=== PATIENT | male | born 1995 | race Two or more races ===

== ENCOUNTER 2023-09-15 15:52 | Emergency (ER) | payer OTHER ==
[~2023-09-15] VITALS: Ht 165.1 cm; Wt 42.2 kg
[2023-09-15] MEDS: IOHEXOL 300 MG/ML 100ML BOTTLE IJ ONE (16:54)
[2023-09-15 17:15] LABS: Urine Bacteria FEW /hpf (None Seen); Urine Blood Negative /uL (Negative); Urine Clarity Clear (Clear); Urine Color Yellow (Yellow); Urine Mucus FEW (None Seen); Urine Protein, UAD 1+ (Negative); Urine Sperm PRESENT /hpf (None Seen); Urine Urobilinogen Normal (Negative); Urine WBC 2 /hpf (0 - 3)
[2023-09-15 17:22] LABS: Basophils # (auto) 0 10 ^3/uL (0-0.2); Basophils % (auto) 0.5 % (0.0-2.0); Eosinophils # (auto) 0 10 ^3/uL (0-0.8); Eosinophils % (auto) 0.3 % (0.0-7.0); Hematocrit 46.3 % (41.0-53.0); Hemoglobin 15.6 g/dL (13.5-17.5); Lymphocytes # (auto) 1.6 10 ^3/uL (0.4-5.4); Lymphocytes % (auto) 22.9 % (10.0-50.0); Mean Corpuscular Hemoglobin 32.4 pg (28.0-32.0); Mean Corpuscular Hgb Conc. 33.6 g/dL (32.0-36.0); Mean Corpuscular Volume 96.3 fL (80.0-100.0); Monocytes # (auto) 0.6 10 ^3/uL (0-1.3); Monocytes % (auto) 8.7 % (0.0-12.0); Neutrophils # (auto) 4.7 10 ^3/uL (1.6-8.6); Neutrophils % (auto) 67.6 % (37.0-80.0); Nucleated Red Blood Cells % 0.1 %; Red Blood Cells 4.81 10^6/uL (4.5-5.90); Red Cell Distribution Width 13.7 % (11.8-14.3); White Blood Cell 6.9 10^3/uL (4.4-10.8)
[2023-09-15 17:28] LABS: Alanine Aminotransferase 18 U/L (7-40); Albumin 5.1 g/dL (3.2-4.8); Alkaline Phosphatase 120 U/L (46-116); Anion Gap 9 (5-15); Aspartate Aminotransferase 17 U/L (13-40); BUN/Creatinine Ratio 16.7 (10.0-20.0); Bilirubin, Total 2.2 mg/dL (0.2-1.0); Blood Urea Nitrogen 13 mg/dL (9-23); Calcium 10.1 mg/dL (8.7-10.4); Carbon Dioxide 27 mmol/L (20-30); Chloride 101 mmol/L (98-107); Glucose 94 mg/dL (74-106); Lipase 56 U/L (12-53); Potassium 3.5 mmol/L (3.5-5.1); Sodium 137 mmol/L (136-145)
[2023-09-15] MEDS ORDERED: CEPH500T PO (20:29)
[2023-09-15 20:50] VITALS: BP 145/90; PULSE 86; RESP 16; TEMP 98; O2SAT 99
[2023-09-15] MEDS: KETOROLAC TROMETH 30 MG/ML 1ML VIAL IV ONE (21:25)
== END 2023-09-15 21:49 | disposition home or self-care (01) ==
LOC: ER 15:52
DX: N39.0 Urinary tract infection, site not specified (principal)
CPT/HCPCS: 36415; 74177; 80053; 81001; 83605; 83690; 85025; 96374; 99285; J1885; Q9967

== ENCOUNTER 2024-05-24 02:06 | Emergency (ER) | payer OTHER ==
[~2024-05-24] VITALS: Ht 165.1 cm; Wt 42.7 kg
[~2024-05-24 02:06] MED LIST: CEPH500T PO
[2024-05-24 06:17] VITALS: BP 134/84; PULSE 96; RESP 18; TEMP 98.4; O2SAT 98
== END 2024-05-24 06:29 | disposition home or self-care (01) ==
LOC: ER 02:06
DX: A64 Unspecified sexually transmitted disease (principal); F41.9 Anxiety disorder, unspecified

== ENCOUNTER 2025-04-16 20:29 | Inpatient (IN) | payer OTHER ==
[~2025-04-16] VITALS: Ht 165.1 cm; Wt 45.0 kg
[2025-04-16] MEDS: SODIUM CHLORIDE 0.9% 1,000 ML IV ONE ×2 (21:45)
--- NOTE | 2025-04-16 22:12 | DVH ---
Exam: CT CT AB PEL WO CON-NO ORAL OR IV History: Abdominal pain, chest pain Comparison Study: None Technique: Multidetector spiral CT of the abdomen was performed from lung bases to pubic symphysis. I maging was performed without IV contrast. Axial, coronal and sagittal multiplanar reformats were obta ined from the axial data set by the technologist. Radiation dose : 1. Abdomen/Pelvis: CTDIvol 4.99 mGy, DLP 268.94 mGy*cm. Findings: Evaluation of solid organs is limited due to lack of intravenous contrast use. Lung Bases: No acute or significant lung base finding. Normal heart size. No pleural or pericardial effusion. Liver: The liver is normal in size. No focal lesions. Gallbladder and biliary Tree: Unremarkable Spleen: Unremarkable Pancreas: The pancreas is grossly normal in appearance. Adrenal Glands: Unremarkable Kidneys: Kidneys are grossly normal without calculi or hydronephrosis. Bladder: Grossly unremarkable for degree of distention. Bowel: Appendix is normal. No colitis, diverticulitis, obstruction, or other acute abnormality. Ascites: Absent Lymphadenopathy: No mesenteric, retroperitoneal or periportal lymphadenopathy. Abdominal wall and Mesentery: Unremarkable. Vasculature: The visualized abdominal aorta is normal in size and caliber. Evaluation of abdominal a nd pelvic vessels is limited due to lack of intravenous contrast. Pelvic Organs: Unremarkable Musculoskeletal: No aggressive focal bony lesions, acute fractures or dislocation. IMPRESSION: 1. No acute abdominal or pelvic findings. Radiation optimization: All CT scans at this facility use at least one of these dose optimization tk hniques: automated exposure control mA and/or kV adjustment per patient size (includes targeted exam s where dose is matched to clinical indication) or iterative reconstruction.
--- NOTE | 2025-04-16 22:18 | DVH ---
CHEST RADIOGRAPH Indication: Suspected Sepsis Technique: Single frontal view of the chest was obtained COMPARISON: None FINDINGS: Mild bronchial wall thickening with mild streaky opacity in the right perihilar region. Cardiac silhouette and nia are within normal limits. Bones and soft tissues demonstrate no significa nt abnormality. IMPRESSION: Suspect mild bronchitis with streaky opacity in the right perihilar region making it difficult to exc lude a developing bronchopneumonia.
[2025-04-16 22:30] LABS: Hematocrit 49.5 % (41.0-53.0); Hemoglobin 17.0 g/dL (13.5-17.5); Mean Corpuscular Hemoglobin 31.8 pg (28.0-32.0); Mean Corpuscular Volume 92.4 fL (80.0-100.0); Nucleated Red Blood Cells % 0.2 %
[2025-04-16] MEDS: KETOROLAC TROMETH 30 MG/ML 1ML VIAL IV ONE (22:45)
--- NOTE | 2025-04-16 22:47 | ED.PDOC ---
History of Present Illness HPI Comments 29-year-old male, with a history of anxiety and depression, presents with chief complaint of abdominal pain, nausea, vomiting, diarrhea, chills. Patient reports 1 day history of symptoms. Additional onset of chest pain upon arrival to ED. Pain is worse after vomiting. 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 REVIEW OF SYSTEMS: General: Chills, no fever or fatigue HEENT: No sore throat, no earache, no congestion, no neck pain. Cardiac: Chest pain. No palpitations. Lungs: No shortness of breath, no cough. GI: Abdominal pain, nausea,, diarrhea : No dysuria, frequency, or urgency. No hematuria. Musculoskeletal: No joint pain , no joint swelling, no extremity edema. Skin: No rash, no itching. Neuro: No headache, no dizziness, no weakness PHYSICAL EXAM: General: Awake, alert and oriented. Appears anxious. Skin: Skin in warm, dry and intact. Appropriate color for ethnicity. HEENT: The head is normocephalic and atraumatic. Conjunctivae are clear without exudates or hemorrhage. Sclera is non-icteric. EOM are intact. No signs of nystagmus. Eyelids are normal in appearance without swelling or lesions. Oral mucosa is pink and moist Neck: The neck is supple with normal range of motion. No JVD. Cardiac: Tachycardic rate but regular rhythm. No murmurs, gallops, or rubs are auscultated. Respiratory: No signs of respiratory distress. Lung sounds are clear in all lobes bilaterally without rales, rhonchi, or wheezes. Abdominal: Generalized abdominal tenderness. Abdomen is soft, without distention, guarding or rigidity. Bowel sounds are present and normoactive in all four quadrants. Extremities: Upper and lower extremities are atraumatic in appearance without deformity or edema. Neurological: The patient is awake, alert and oriented to person, place, and time with normal speech. Speech is clear. There is no facial asymmetry. Mild tremor. Psychiatric: Appropriate mood and affect. Good judgement and insight. Chief Complaint: Abdominal Pain Time Seen by MD: 20:52 Primary Care Provider: NONE Reviewed Notes: Nurses Notes, Medications, Allergies Allergies: Coded Allergies: NO KNOWN ALLERGIES (Unverified , 09/15/23) Home Meds Active Scripts Cephalexin Monohydrate (Cephalexin) 500 Mg Tab, 1 TAB PO TID for 7 Days, #21 TAB Prov:JOSE GUTIERREZ DO 09/15/23 Information Source: Patient Mode of Arrival: Ambulatory Past Medical History PAST MEDICAL HISTORY: Denies Surgical History: Denies all surgeries Family History Family History: Unknown Social History Smoker: Non-Smoker Alcohol: Occasionally Drugs: Denies Drug Use Lives In: Home Was a procedure done? Was a procedure done?: No EKG EKG : Pulse Rate (adult): 129 [place]: Normal Cardiac Rhythm: ST Block: None Hypertrophy: None ST: Normal Differential Dx Considerations may include: Differential diagnoses considered include: Abdominal aortic aneurysm, DE, esophageal rupture, intestinal obstruction, mesenteric ischemia, perforated viscus or solid organ rupture, CHF with hepatomegaly, pneumonia, abscess, appendicitis, biliary disease, diverticulitis, gastritis, gastroenteritis, hepatitis, hernia, inflammatory bowel disease, pancreatitis, peptic ulcer disease, urinary tract infection, ureteral colic, constipation, GERD, irritable syndrome, abdominal wall pain, nonspecific abdominal pain, herpes zoster, nephrolithiasis. X-Ray, Labs, Meds, VS Vital Signs Date Time Temp Pulse Resp B/P (MAP) Pulse Ox O2 Delivery O2 Flow Rate FiO2 04/16/25 21:29 129 04/16/25 20:35 98.9 130 20 127/87 98 98.9 Lab Test 04/16/25 23:37 04/16/25 22:10 04/15/25 23:45 Range/Units Troponin I High Sensitivity < 3 L < 3 L </=54 ng/L White Blood Count 9.3 4.4-10.8 10^3/uL Red Blood Count 5.35 4.5-5.90 10^6/uL Hemoglobin 17.0 13.5-17.5 g/dL Hematocrit 49.5 41.0-53.0 % Mean Corpuscular Volume 92.4 80.0-100.0 fL Mean Corpuscular Hemoglobin 31.8 28.0-32.0 pg Mean Corpuscular Hemoglobin Concent 34.4 32.0-36.0 g/dL Red Cell Distribution Width 13.1 11.8-14.3 % Platelet Count 332 140-450 10^3/uL Mean Platelet Volume 7.6 6.9-10.8 fL Neutrophils (%) (Auto) 83.3 H 37.0-80.0 % Lymphocytes (%) (Auto) 10.5 10.0-50.0 % Monocytes (%) (Auto) 5.7 0.0-12.0 % Eosinophils (%) (Auto) 0.0 0.0-7.0 % Basophils (%) (Auto) 0.5 0.0-2.0 % Neutrophils # (Auto) 7.8 1.6-8.6 10 ^3/uL Lymphocytes # (Auto) 1.0 0.4-5.4 10 ^3/uL Monocytes # (Auto) 0.5 0-1.3 10 ^3/uL Eosinophils # (Auto) 0 0-0.8 10 ^3/uL Basophils # (Auto) 0 0-0.2 10 ^3/uL Nucleated Red Blood Cells 0.2 % Sodium Level 138 136-145 mmol/L Potassium Level 3.5 3.5-5.1 mmol/L Chloride Level 96 L 98-107 mmol/L Carbon Dioxide Level 21 20-31 mmol/L Anion Gap 21 H 5-15 Blood Urea Nitrogen 6 L 9-23 mg/dL Creatinine 0.79 0.700-1.30 mg/dL Glomerular Filtration Rate Calc 124 >90 mL/min BUN/Creatinine Ratio 7.6 L 10.0-20.0 Serum Glucose 119 H 74-106 mg/dL Lactic Acid Level 4.8 *H 5.2 *H 0.4-2.0 mmol/L Calcium Level 10.2 8.7-10.4 mg/dL Total Bilirubin 2.8 H 0.2-1.0 mg/dL Aspartate Amino Transferase (AST) 24 13-40 U/L Alanine Aminotransferase (ALT) 16 7-40 U/L Alkaline Phosphatase 134 H 46-116 U/L Total Protein 8.4 H 5.7-8.2 g/dL Albumin 5.4 H 3.2-4.8 g/dL Lipase 32 12-53 U/L Current Medications Medications (Trade) Dose Ordered Sig/Sherron Route Start Time Stop Time Status Last Admin Sodium Chloride 1,000 ml @ 1,000 mls/hr Q1H ONCE IV 04/16/25 21:45 04/16/25 22:44 DC 04/16/25 21:45 Ketorolac Tromethamine (Toradol Injection) 15 mg ONCE ONCE IV 04/16/25 21:45 04/16/25 21:46 DC 04/17/25 00:31 Ondansetron HCl (Zofran) 4 mg ONCE ONCE IV 04/16/25 22:45 04/16/25 22:46 DC 04/17/25 00:31 [place] [id number] Ph: [phone] DIAGNOSTIC IMAGING Diagnostic Imaging Report : [id number] Signed PATIENT: YOON LUGO ACCT: [id number] UNIT: [id number] : 1995 LOC: ER ROOM / BED: / AGE / SEX: 29 / M ADM STATUS: REG ER SERVICE 31 ORDERING PHYSICIAN: LENIN MARIA MD PROCEDURE(s): CXR1 - CHEST XRAY 1 VIEW REASON: Suspected Sepsis ORDER NUMBER(s): [id number], ACCESSION NUMBER(s): [id number] CHEST RADIOGRAPH Indication: Suspected Sepsis Technique: Single frontal view of the chest was obtained COMPARISON: None FINDINGS: Mild bronchial wall thickening with mild streaky opacity in the right perihilar region. Cardiac silhouette and nia are within normal limits. Bones and soft tissues demonstrate no significant abnormality. IMPRESSION: Suspect mild bronchitis with streaky opacity in the right perihilar region making it difficult to exclude a developing bronchopneumonia. ATED BY: EVELINE MONROY MD DICTATED DATE/TIME: 04/16/252214 SIGNED BY: EVELINE MONROY MD SIGNED DATE/TIME: 04/16/252214 CC: [address] [address] Ph: [phone] DIAGNOSTIC IMAGING Diagnostic Imaging Report : [id number] Signed PATIENT: YOON LUGO ACCT: [id number] UNIT: [id number] : 1995 LOC: ER ROOM / BED: / AGE / SEX: 29 / M ADM STATUS: REG ER SERVICE 31 ORDERING PHYSICIAN: LENIN MARIA MD PROCEDURE(s): ABPL - CT AB PEL WO CON-NO ORAL OR IV REASON: Abdominal pain, chest pain ORDER NUMBER(s): [id number], ACCESSION NUMBER(s): [id number] Exam: CT CT AB PEL WO CON-NO ORAL OR IV History: Abdominal pain, chest pain Comparison Study: None Technique: Multidetector spiral CT of the abdomen was performed from lung bases to pubic symphysis. Imaging was performed without IV contrast. Axial, coronal and sagittal multiplanar reformats were obtained from the axial data set by the technologist. Radiation dose : 1. Abdomen/Pelvis: CTDIvol 4.99 mGy, DLP 268.94 mGy*cm. Findings: Evaluation of solid organs is limited due to lack of intravenous contrast use. Lung Bases: No acute or significant lung base finding. Normal heart size. No pleural or pericardial effusion. Liver: The liver is normal in size. No focal lesions. Gallbladder and biliary Tree: Unremarkable Spleen: Unremarkable Pancreas: The pancreas is grossly normal in appearance. Adrenal Glands: Unremarkable Kidneys: Kidneys are grossly normal without calculi or hydronephrosis. Bladder: Grossly unremarkable for degree of distention. Bowel: Appendix is normal. No colitis, diverticulitis, obstruction, or other acute abnormality. Ascites: Absent Lymphadenopathy: No mesenteric, retroperitoneal or periportal lymphadenopathy. Abdominal wall and Mesentery: Unremarkable. Vasculature: The visualized abdominal aorta is normal in size and caliber. Evaluation of abdominal and pelvic vessels is limited due to lack of intravenous contrast. Pelvic Organs: Unremarkable Musculoskeletal: No aggressive focal bony lesions, acute fractures or dislocation. IMPRESSION: 1. No acute abdominal or pelvic findings. Radiation optimization: All CT scans at this facility use at least one of these dose optimization techniques: automated exposure control mA and/or kV adjustment per patient size (includes targeted exams where dose is matched to clinical indication) or iterative reconstruction. ATED BY: EVELINE MONROY MD DICTATED DATE/TIME: 04/16/252209 SIGNED BY: EVELINE MONROY MD SIGNED DATE/TIME: 04/16/252209 CC: Time of 1ST Reevaluation: 21:22 Reevaluation 1ST: Unchanged Patient Education/Counseling: Treatment, Other (Need for admission) Family Education/Counseling: No Family Present SEPSIS Sepsis Screen Date sepsis recognized/suspect: Apr 16, 2025 Time Sepsis recognized/suspect: 2037 Recent Procedure: No On Antibiotic Therapy: No Respiratory Rate >20: No Heart Rate >90: Yes Temp<36 C (96.8 F) or >38.3 C: No SBP <90 or MAP <65 mmHG: No New Acute Mental Status Change: No Is the patient on CPAP, BIPAP,: No Physician Orders Jig Grinder (04/16/25 ) Rectal/Core Temps Only (04/16/25 21:32) Blood Culture (04/16/25 21:32) Chest Xray 1 View (04/16/25 21:32) Urinalysis (04/16/25 21:32) Ct Ab Pel Wo Con-No Oral Or Iv (04/16/25 21:32) Jig Grinder (04/16/25 ) Electrocardigram (04/16/25 21:36) Vital Signs Date Time Temp Pulse Resp B/P (MAP) Pulse Ox O2 Delivery O2 Flow Rate FiO2 04/16/25 21:29 129 04/16/25 20:35 98.9 130 20 127/87 98 98.9 Laboratory Tests Test 04/15/25 23:45 04/16/25 22:10 Lactic Acid Level 5.2 mmol/L (0.4-2.0) *H 4.8 mmol/L (0.4-2.0) *H White Blood Count 9.3 10^3/uL (4.4-10.8) Medications Medications Dose Ordered Sig/Sherron Route Start Time Stop Time Status Last Admin Dose Admin Ketorolac Tromethamine 15 mg ONCE ONCE IV 04/16/25 21:45 04/16/25 21:46 DC 04/17/25 00:31 Ondansetron HCl 4 mg ONCE ONCE IV 04/16/25 22:45 04/16/25 22:46 DC 04/17/25 00:31 Sodium Chloride 1,000 ml @ 1,000 mls/hr Q1H ONCE IV 04/16/25 21:45 04/16/25 22:44 DC 04/16/25 21:45 Departure 1 Departure Time of Disposition: 00:26 Impression: Primary Impression: Lactic acidemia Additional Impressions: Abdominal pain Sinus tachycardia Nausea and vomiting Disposition: ADMITTED INPATIENT Condition: Stable Comments 29-year-old male who presents with abdominal pain, nausea, vomiting. Lactic acid not improving in the emergency department. Patient is afebrile, no leukocytosis. CT abdomen and pelvis shows no acute process. Patient admitted to hospitalist service for further treatment, evaluation and monitoring. Critical Care Note Critical Care Time?: No Stability Stability form required: No Heart Score Heart Score: Heart Score Response (Comments) Value History N/A 0 EKG N/A 0 Age N/A 0 Risk Factors N/A 0 Troponin N/A 0 Total 0 I personally scribed for LENIN MARIA MD ([email or web address]) on 04/16/25 at 22:47. Electronically submitted by Lewis Solis ([email or web address]). I personally scribed for LENIN MARIA MD ([email or web address]) on 04/17/25 at 02:56. Electronically submitted by Lewis Solis ([email or web address]). LENIN MARIA MD Apr 16, 2025 22:47
[2025-04-16 22:48] LABS: Alanine Aminotransferase 16 U/L (7-40); Anion Gap 21 (5-15); BUN/Creatinine Ratio 7.6 (10.0-20.0); Calcium 10.2 mg/dL (8.7-10.4); Carbon Dioxide 21 mmol/L (20-31); Lipase 32 U/L (12-53); Potassium 3.5 mmol/L (3.5-5.1); Sodium 138 mmol/L (136-145)
[2025-04-16 22:49] LABS: Albumin 5.4 g/dL (3.2-4.8); Alkaline Phosphatase 134 U/L (46-116); Bilirubin, Total 2.8 mg/dL (0.2-1.0); Blood Urea Nitrogen 6 mg/dL (9-23); Chloride 96 mmol/L (98-107); Glucose 119 mg/dL (74-106); Total Protein 8.4 g/dL (5.7-8.2)
[2025-04-16 22:51] LABS: Lactic Acid w/Reflex 4.8 mmol/L (0.4-2.0)
[2025-04-17] MEDS: ONDANSETRON HCL 4 MG/2 ML VIAL IV ONE (00:31)
[2025-04-17] MEDS: KETOROLAC TROMETH 30 MG/ML 1ML VIAL IV ONE (00:31)
[2025-04-17] MEDS: SODIUM CHLORIDE 0.9% 1,000 ML IV ONE ×2 (00:32→01:32)
[2025-04-17] MEDS ORDERED: NITROGLYCERIN 0.4 MG SL TAB SL PRN (01:15)
[2025-04-17] MEDS ORDERED: ACETAMINOPHEN 325 MG TAB PO PRN (01:15)
[2025-04-17] MEDS ORDERED: MORPHINE SULFATE INJ 2 MG/ml SYRG IV PRN ×2 (01:15)
[2025-04-17] MEDS ORDERED: ONDANSETRON HCL 4 MG/2 ML VIAL IV PRN (01:15)
[2025-04-17] MEDS ORDERED: HYDROcodone-ACET 5/325MG TAB PO PRN (01:15)
[2025-04-17] MEDS: PANTOPRAZOLE 40 MG/10 ML VIAL INJ IV ONE (01:38)
[2025-04-17 01:40] VITALS: BP 153/82; RESP 16; TEMP 98.1; O2SAT 95
[2025-04-17 02:56] VITALS: PULSE 129
--- NOTE | 2025-04-17 04:35 | DVHHP2 ---
History of Present Illness Reason for Visit: Abdominal pain History of Present Illness 21-year-old male presents for evaluation of abdominal pain. Patient endorses a one day history of diffuse abdominal pain. Patient reports binge drinking the night prior. Today he presents with diffuse abdominal pain with associated nausea, vomiting and tremors. No diarrhea. No fever. Past Medical History Denies Past Surgical History Denies Family History Noncontributory Smoke: No ALCOHOL: heavy Drugs: None Lives: with Family Review of Systems Review of Systems Review of systems are currently negative otherwise addressed in HPI. Allergies: Coded Allergies: NO KNOWN ALLERGIES (Unverified , 09/15/23) Medications Current Medications Medications Dose Ordered Sig/[place] Route Start Time Stop Time Status Last Admin Dose Admin Chlordiazepoxide HCl 25 mg Q6HPRN PRN PO 04/17/25 01:15 Thiamine HCl 100 mg DAILY PO 04/17/25 10:00 Folic Acid 1 mg DAILY PO 04/17/25 10:00 Pantoprazole Sodium 40 mg DAILY IV 04/17/25 10:00 Acetaminophen/ Hydrocodone Bitart 1 tab Q4HP PRN PO 04/17/25 01:15 Ondansetron HCl 4 mg Q4HP PRN IV 04/17/25 01:15 Acetaminophen 650 mg Q6HP PRN PO 04/17/25 01:15 Morphine Sulfate 2 mg Q8HPRN PRN IV 04/17/25 01:15 Nitroglycerin 0.4 mg Q5MINP PRN SL 04/17/25 01:15 Morphine Sulfate 2 mg Q30M PRN IV 04/17/25 01:15 Exam Vital Signs Vital Signs Date Time Temp Pulse Resp B/P (MAP) Pulse Ox O2 Delivery O2 Flow Rate FiO2 04/17/25 02:56 129 04/17/25 01:40 98.1 16 153/82 (105) 95 98.1 Exam Gen: 29-year-old male in mild distress, cachectic Skin: Warm, dry, normal color and texture, no rash. HEENT: Normocephalic atraumatic, mucous membranes moist and pink. Neck: Cervical and supraclavicular nodes normal without enlargement, trachea is midline, thyroid gland is normal without masses. Pulmonary: Clear to auscultation and percussion bilaterally. Cardiac: Regular rate and rhythm. No murmur Abdomen: Soft, nontender, nondistended, bowel sounds present all 4 quadrants, no guarding, no rigidity, no organomegaly. Extremities: No cyanosis, clubbing, no edema Neuro: Cranial nerves II through XII grossly intact, normal affect and speech, no focal motor deficits. Labs/Xrays ORDERING PHYSICIAN: LENIN MARIA MD PROCEDURE(s): ABPL - CT AB PEL WO CON-NO ORAL OR IV REASON: Abdominal pain, chest pain ORDER NUMBER(s): [id number], ACCESSION NUMBER(s): [id number] Exam: CT CT AB PEL WO CON-NO ORAL OR IV History: Abdominal pain, chest pain Comparison Study: None Technique: Multidetector spiral CT of the abdomen was performed from lung bases to pubic symphysis. Imaging was performed without IV contrast. Axial, coronal and sagittal multiplanar reformats were obtained from the axial data set by the technologist. Radiation dose : 1. Abdomen/Pelvis: CTDIvol 4.99 mGy, DLP 268.94 mGy*cm. Findings: Evaluation of solid organs is limited due to lack of intravenous contrast use. Lung Bases: No acute or significant lung base finding. Normal heart size. No pleural or pericardial effusion. Liver: The liver is normal in size. No focal lesions. Gallbladder and biliary Tree: Unremarkable Spleen: Unremarkable Pancreas: The pancreas is grossly normal in appearance. Adrenal Glands: Unremarkable Kidneys: Kidneys are grossly normal without calculi or hydronephrosis. Bladder: Grossly unremarkable for degree of distention. Bowel: Appendix is normal. No colitis, diverticulitis, obstruction, or other acute abnormality. Ascites: Absent Lymphadenopathy: No mesenteric, retroperitoneal or periportal lymphadenopathy. Abdominal wall and Mesentery: Unremarkable. Vasculature: The visualized abdominal aorta is normal in size and caliber. Evaluation of abdominal and pelvic vessels is limited due to lack of intravenous contrast. Pelvic Organs: Unremarkable Musculoskeletal: No aggressive focal bony lesions, acute fractures or dislocation. IMPRESSION: 1. No acute abdominal or pelvic findings. Radiation optimization: All CT scans at this facility use at least one of these dose optimization techniques: automated exposure control mA and/or kV adjustment per patient size (includes targeted exams where dose is matched to clinical indication) or iterative reconstruction. Labs Test 04/17/25 01:49 04/16/25 22:10 Range/Units Troponin I High Sensitivity < 3 L </=54 ng/L White Blood Count 9.3 4.4-10.8 10^3/uL Red Blood Count 5.35 4.5-5.90 10^6/uL Hemoglobin 17.0 13.5-17.5 g/dL Hematocrit 49.5 41.0-53.0 % Mean Corpuscular Volume 92.4 80.0-100.0 fL Mean Corpuscular Hemoglobin 31.8 28.0-32.0 pg Mean Corpuscular Hemoglobin Concent 34.4 32.0-36.0 g/dL Red Cell Distribution Width 13.1 11.8-14.3 % Platelet Count 332 140-450 10^3/uL Mean Platelet Volume 7.6 6.9-10.8 fL Neutrophils (%) (Auto) 83.3 H 37.0-80.0 % Lymphocytes (%) (Auto) 10.5 10.0-50.0 % Monocytes (%) (Auto) 5.7 0.0-12.0 % Eosinophils (%) (Auto) 0.0 0.0-7.0 % Basophils (%) (Auto) 0.5 0.0-2.0 % Neutrophils # (Auto) 7.8 1.6-8.6 10 ^3/uL Lymphocytes # (Auto) 1.0 0.4-5.4 10 ^3/uL Monocytes # (Auto) 0.5 0-1.3 10 ^3/uL Eosinophils # (Auto) 0 0-0.8 10 ^3/uL Basophils # (Auto) 0 0-0.2 10 ^3/uL Nucleated Red Blood Cells 0.2 % Sodium Level 138 136-145 mmol/L Potassium Level 3.5 3.5-5.1 mmol/L Chloride Level 96 L 98-107 mmol/L Carbon Dioxide Level 21 20-31 mmol/L Anion Gap 21 H 5-15 Blood Urea Nitrogen 6 L 9-23 mg/dL Creatinine 0.79 0.700-1.30 mg/dL Glomerular Filtration Rate Calc 124 >90 mL/min BUN/Creatinine Ratio 7.6 L 10.0-20.0 Serum Glucose 119 H 74-106 mg/dL Lactic Acid Level 4.8 *H 0.4-2.0 mmol/L Calcium Level 10.2 8.7-10.4 mg/dL Total Bilirubin 2.8 H 0.2-1.0 mg/dL Aspartate Amino Transferase (AST) 24 13-40 U/L Alanine Aminotransferase (ALT) 16 7-40 U/L Alkaline Phosphatase 134 H 46-116 U/L Total Protein 8.4 H 5.7-8.2 g/dL Albumin 5.4 H 3.2-4.8 g/dL Lipase 32 12-53 U/L SEPSIS Sepsis Screen Date sepsis recognized/suspect: Apr 16, 2025 Time Sepsis recognized/suspect: 2037 Recent Procedure: No On Antibiotic Therapy: No Respiratory Rate >20: No Heart Rate >90: Yes Temp<36 C (96.8 F) or >38.3 C: No SBP <90 or MAP <65 mmHG: No New Acute Mental Status Change: No Is the patient on CPAP, BIPAP,: No Physician Orders Sodium Chloride 0.9% (04/16/25 21:45) Vital Signs Q1HR (04/16/25 21:32) Saline Lock (04/16/25 21:32) Manager Pharmacy (04/16/25 ) Rectal/Core Temps Only (04/16/25 21:32) Notify Md If Abnormal Vs (04/16/25 21:32) Blood Culture (04/16/25 21:32) Chest Xray 1 View (04/16/25 21:32) Urinalysis (04/16/25 21:32) Ct Ab Pel Wo Con-No Oral Or Iv (04/16/25 21:32) Manager Pharmacy (04/16/25 ) Electrocardigram (04/16/25 21:36) Chlordiazepoxide Hcl Capsule (Librium Ca (04/17/25 01:15) Sodium Chloride 0.9% (04/17/25 01:15) Pantoprazole (Protonix) (04/17/25 10:00) Clear Liq Diet (04/17/25 Breakfast) Admit (04/17/25 01:13) Hydrocodone-Acet 5/325mg Tab ([place] 32 (04/17/25 01:15) Ondansetron Hcl (Zofran) (04/17/25 01:15) Complete Blood Count (04/18/25 04:00) Comprehensive Metabolic Panel (04/18/25 04:00) Condition: Stable (04/17/25 01:13) Acetaminophen Tablet (Tylenol Tablet) (04/17/25 01:15) Bedrest With Bathroom Privileg (04/17/25 01:13) Morphine Sulfate Injection (04/17/25 01:15) Nitroglycerin Sublingual (Ntrostat Subli (04/17/25 01:15) Morphine Sulfate Injection (04/17/25 01:15) Stat Ekg For Chest Pain (04/17/25 01:13) Notify Of Changes From Base (04/17/25 01:13) Inspector [employer] Wafer For 24 Hours (04/17/25 01:13) Emergency Dysrhythmia Protocol (04/17/25 01:13) Rhythm Strips Once Every Shift (04/17/25 01:13) Oxygen By Nasal Cannula (04/17/25 01:13) Thiamine Tab (04/17/25 10:00) Folic Acid Tablet (04/17/25 10:00) Vital Signs Date Time Temp Pulse Resp B/P (MAP) Pulse Ox O2 Delivery O2 Flow Rate FiO2 04/17/25 02:56 129 04/17/25 01:40 98.1 104 16 153/82 (105) 95 98.1 04/16/25 21:29 129 04/16/25 20:35 98.9 130 20 127/87 98 98.9 Laboratory Tests Test 04/16/25 22:10 Lactic Acid Level 4.8 mmol/L (0.4-2.0) *H White Blood Count 9.3 10^3/uL (4.4-10.8) Medications Medications Dose Ordered Sig/Sherron Route Start Time Stop Time Status Last Admin Dose Admin Chlordiazepoxide HCl 25 mg ONCE ONCE PO 04/17/25 01:15 04/17/25 01:23 DC 04/17/25 01:38 25 MG Ketorolac Tromethamine 15 mg ONCE ONCE IV 04/16/25 21:45 04/16/25 21:46 DC 04/17/25 00:31 15 MG Ondansetron HCl 4 mg ONCE ONCE IV 04/16/25 22:45 04/16/25 22:46 DC 04/17/25 00:31 4 MG Pantoprazole Sodium 40 mg ONCE ONCE IV 04/17/25 01:15 04/17/25 01:23 DC 04/17/25 01:38 40 MG Sodium Chloride 1,000 ml @ 1,000 mls/hr Q1H ONCE IV 04/16/25 21:45 04/16/25 22:44 DC 04/16/25 21:45 1,000 MLS/HR Assessment/Plan Assessment/Plan Assessment Acute abdominal pain Alcohol withdrawal Transaminitis Sinus tachycardia Plan [facility] Maintenance IV fluids Librium Pain management Continue treatment per orders Plan discussed with: Patient My Orders Orders - RAMÍREZKRISTASEBASTIAN AGACNP Procedure Category Date Status Time Chlordiazepoxide Hcl PHA 04/17/25 In Process Capsule (Librium Ca 01:15 Sodium Chloride 0.9% PHA 04/17/25 In Process 01:15 Pantoprazole PHA 04/17/25 In Process (Protonix) 10:00 Clear Liq Diet DIET 04/17/25 Transmitted Breakfast Admit ADMIT 04/17/25 Transmitted 01:13 Hydrocodone-Acet PHA 04/17/25 In Process 5/325mg Tab ([place] 01:15 Ondansetron Hcl PHA 04/17/25 In Process (Zofran) 01:15 Complete Blood Count LAB 04/18/25 Verified 04:00 Comprehensive LAB 04/18/25 Verified Metabolic Panel 04:00 Condition: Stable [place] 04/17/25 In Process 01:13 Acetaminophen Tablet PHA 04/17/25 In Process (Tylenol Tablet) 01:15 Bedrest With Bathroom [place] 04/17/25 In Process Privileg 01:13 Morphine Sulfate PHA 04/17/25 In Process Injection 01:15 Nitroglycerin PHA 04/17/25 In Process Sublingual (Ntrostat 01:15 Morphine Sulfate PHA 04/17/25 In Process Injection 01:15 Stat Ekg For Chest [facility] 04/17/25 In Process Pain 01:13 Notify Of Changes [place] 04/17/25 In Process From Base 01:13 Inspector [employer] Wafer For [facility] 04/17/25 In Process 24 Hours 01:13 Emergency Dysrhythmia [facility] 04/17/25 In Process Protocol 01:13 Rhythm Strips Once [facility] 04/17/25 In Process Every Shift 01:13 Oxygen By Nasal RT 04/17/25 Transmitted Cannula 01:13 Thiamine Tab [facility] 04/17/25 In Process 10:00 Folic Acid Tablet [facility] 04/17/25 In Process 10:00 Date of Service: Apr 16, 2025 Billing Provider: KRISTA RAMÍREZ Common Visit Codes: [id number] INP/OBS CARE (MOD) KRISTA RAMÍREZ Apr 17, 2025 04:35
--- NOTE | 2025-04-17 07:54 | ECG ---
[facility] Test Date: 2025-04-16 Test Time: 21:29:44 Pat Name: YOON LUGO Department: ED Room: [address] [place] [address] A Gender: M Rf Engineer: GOSIA : 1995 Requested By: LENIN MARIA Order Number: [id number] Reading MD: Delta Morris Measurements Intervals [place] Rate: 129 P: 83 IL: 119 QRS: 115 QRSD: 80 T: 20 QT: 298 QTc: 437 Interpretive Statements Sinus tachycardia Consider right atrial enlargement Left posterior fascicular block Anterior infarct, old Minimal ST depression, inferior leads Electronically Signed On 04-17-2025 19:18:56 PDT by Delta Morris Please click the below link to view image of tracing.
[2025-04-17] MEDS ORDERED: THIAMINE HCL 100 MG TAB PO SCH (10:00)
[2025-04-17] MEDS ORDERED: FOLIC ACID 1 MG TAB PO SCH (10:00)
[2025-04-17] MEDS ORDERED: PANTOPRAZOLE 40 MG/10 ML VIAL INJ IV SCH (10:00)
== END 2025-04-17 03:15 | disposition left against medical advice (07) | DRG 249 ==
LOC: ER 20:29 → OVERFLOW 04-17 01:13
PROVIDERS: ADMIT Nurse Practitioner; ATTEND Nurse Practitioner
DX: A08.4 Viral intestinal infection, unspecified (principal); E87.20 Acidosis, unspecified; R07.89 Other chest pain; Z53.29 Procedure and treatment not carried out because of patient's decision for other reasons; F10.239 Alcohol dependence with withdrawal, unspecified; F32.A Depression, unspecified; F41.9 Anxiety disorder, unspecified; R74.01 Elevation of levels of liver transaminase levels; R00.0 Tachycardia, unspecified; Z79.899 Other long term (current) drug therapy; Y90.9 Presence of alcohol in blood, level not specified
CPT/HCPCS: 36415; 71045; 74176; 80053; 83605; 83690; 84484; 85025; 87040; 93005; 96374; G0378; J1885; J2405; J2470